=== PATIENT | female | born 1995 | race American Indian/Alaskan Native ===

== ENCOUNTER 2017-08-27 23:01 | Emergency (ER) | payer OTHER ==
[2017-08-27] MEDS ORDERED: MOTRIN PO ONE (23:21)
[2017-08-27] MEDS ORDERED: NORCO 5/325 ONE (23:50)
[2017-08-27] MEDS ORDERED: NORCO 5/325 PO ONE (23:53)
[2017-08-27] MEDS ORDERED: BOOSTRIX IM ONE (23:55)
[2017-08-27] MEDS ORDERED: XYLOCAINE 2% INFILTRATI ONE ×2 (23:55)
--- NOTE | 2017-08-28 00:05 | XRay Report ---
FINAL REPORT PROCEDURE: Left hand. TECHNIQUE: AP and lateral views. HISTORY: Injury to left middle finger. COMPARISON: No prior studies are available for comparison. FINDINGS: The bones appear intact without fracture or dislocation. The joint spaces appear normal. The soft tissues are unremarkable. IMPRESSION: Normal study.
--- NOTE | 2017-08-28 01:16 | Emergency Department Report ---
ED Upper Extremity Inj HPI - General Chief Complaint: Extremity Injury, Upper Stated Complaint: LEFT MIDDLE FINGER PAIN Time Seen by Provider: 08/28/17 01:10 Source: patient Mode of arrival: Ambulatory Limitations: No Limitations - History of Present Illness Initial Comments: Patient's a 21-year-old -[place] female who presents for left middle finger pain as she slammed her finger in the car door patient states was accidental and and see a dentist slammed a door patient complains of pain aching throbbing on the nail states now has dark MD Complaint: Injury to:: left, finger Onset/Timin -: hour(s) Other Extremity Injury: Fingers: Left (left middle finger ) Other Injuries: none Handedness: left Place: home Severity scale (0 -10): 5 Improves With: none Worsens With: movement of extremity Context: direct blow Associated Symptoms: denies: denies other symptoms, weakness, numbness, neck pain, suspects foreign body, nausea/vomiting, heard/felt popping sensat - Related Data Previous Rx's Medication Instructions Recorded Last Taken Type traMADol [Ultram] 50 mg PO Q6HR PRN #10 tablet 08/28/17 Unknown Rx Allergies Allergy/AdvReac Type Severity Reaction Status Date / Time No Known Allergies Allergy Unverified 08/27/17 23:19 ED Review of Systems ROS: Stated complaint: LEFT MIDDLE FINGER PAIN Other details as noted in HPI Constitutional: denies: chills, fever Eyes: denies: eye pain, eye discharge, vision change ENT: denies: ear pain, throat pain Respiratory: denies: cough, shortness of breath, wheezing Cardiovascular: denies: chest pain, palpitations Endocrine: no symptoms reported Gastrointestinal: denies: abdominal pain, nausea, diarrhea Genitourinary: denies: urgency, dysuria, discharge Musculoskeletal: denies: back pain, joint swelling, arthralgia Skin: other (left middle finger fingernail pain ). denies: rash, lesions Neurological: denies: headache, weakness, paresthesias Psychiatric: denies: anxiety, depression Hematological/Lymphatic: denies: easy bleeding, easy bruising ED Past Medical Hx - Past Medical History Previous Medical History?: No - Surgical History Past Surgical History?: No - Social History Smoking Status: Never Smoker Substance Use Type: None - Medications Home Medications: Home Medications Medication Instructions Recorded Confirmed Last Taken Type traMADol [Ultram] 50 mg PO Q6HR PRN #10 tablet 08/28/17 Unknown Rx ED Physical Exam - General Limitations: No Limitations General appearance: alert, in no apparent distress - Head Head exam: Present: atraumatic, normocephalic - Eye Eye exam: Present: normal appearance - ENT ENT exam: Present: mucous membranes moist - Neck Neck exam: Present: normal inspection - Respiratory Respiratory exam: Present: normal lung sounds bilaterally. Absent: respiratory distress - Cardiovascular Cardiovascular Exam: Present: regular rate, normal rhythm. Absent: systolic murmur, diastolic murmur, rubs, gallop - GI/Abdominal GI/Abdominal exam: Present: soft, normal bowel sounds - Rectal Rectal exam: Present: deferred - Extremities Exam Extremities exam: Present: full ROM, tenderness, normal capillary refill. Absent: pedal edema, joint swelling, calf tenderness - Expanded Upper Extremity Exam Left Hand Wrist exam: Present: full ROM, tenderness, swelling, ecchymosis, erythema, subungual hematoma. Absent: abrasion, laceration, deformity, crepidus, dislocation, amputation, nail avulsion Neuro motor exam: Present: wrist extension intact, thumb opposition intact, thumb IP flexion intact, thumb adduction intact, fingers 2-5 abduction intact Neurosensory exam: Present: 2-point discrimination, radial nerve intact, ulnar nerve intact, median nerve intact Vascular: Present: normal capillary refill, radial pulse, brachial pulse, ulnar pulse. Absent: vascular compromise, Pallo, pulse deficit radial art, pulse deficit ulnar art, pulse deficit brachial art - Back Exam Back exam: Present: normal inspection, full ROM, tenderness - Neurological Exam Neurological exam: Present: alert, oriented X3 - Psychiatric Psychiatric exam: Present: normal affect, normal mood - Skin Skin exam: Present: warm, dry, intact, normal color. Absent: rash ED Course Vital Signs 08/27/17 08/27/17 23:16 23:56 Temperature 97.9 F Pulse Rate 87 Respiratory 16 18 Rate Blood Pressure 123/67 O2 Sat by Pulse 100 Oximetry - I & D Left Finger Type of Procedure: Simple Site: left middle fing subungal hematoma Blade Size: 18 g needle I & D Procedure: betadine prep Progress: pt for left middle finger subungal hematoma , xray negative for fracture finger cleaned with betadine solution anesthesia with 1% lidcaine via digital block hematoma relieved via 18 needle straight to nail and 3 aspiration sticks under nail pt all bleeding is controlled, sterile dressing applied pt tolerated procedure with minimal distress ED Medical Decision Making - Radiology Data Radiology results: report reviewed, image reviewed normal xray no fracture no soft tissue abnomality Critical care attestation.: If time is entered above; I have spent that time in minutes in the direct care of this critically ill patient, excluding procedure time. ED Disposition Clinical Impression: Subungual hematoma of left middle finger Finger sprain Qualifiers: Encounter type: initial encounter Finger: middle finger Sprain of finger site: interphalangeal joint Laterality: left Qualified Code(s): S63.633A - Sprain of interphalangeal joint of left middle finger, initial encounter Disposition: TO HOME OR SELFCARE Is pt being admited?: No Does the pt Need Aspirin: No Condition: Good Instructions: Subungual Hematoma (ED) Prescriptions: traMADol [Ultram] 50 mg PO Q6HR PRN #10 tablet PRN Reason: Pain Referrals: PRIMARY CARE, [Primary Care Provider] - 3-5 Days Forms: Work/School Release Form(ED) Time of Disposition: 01:24
[2017-08-28 01:37] VITALS: BP 111/83
== END 2017-08-28 01:37 | disposition home or self-care (01) ==
LOC: ED 23:01
DX: S60.132A Contusion of left middle finger with damage to nail, initial encounter (principal); S63.633A Sprain of interphalangeal joint of left middle finger, initial encounter; W23.0XXA Caught, crushed, jammed, or pinched between moving objects, initial encounter; Y93.89 Activity, other specified; Y99.8 Other external cause status; Y92.89 Other specified places as the place of occurrence of the external cause
CPT/HCPCS: 99283